=== PATIENT | male | born 1995 | race Caucasian/White ===

== ENCOUNTER 2021-07-23 09:42 | Day surgery (SDC) | payer OTHER ==
[~2021-07-23] VITALS: Ht 180.3 cm; Wt 93.0 kg
[~2021-07-23 09:42] MED LIST: LR 1,000 ML IV ONE
[2021-07-23] MEDS ORDERED: ceFAZolin SOD 2 GM in IV 1 EA IV ONE (11:25)
[2021-07-23] MEDS ORDERED: propofoL 500 MG/50 ML VIAL As Ordered ONE ×2 (13:08→14:39)
[2021-07-23] MEDS ORDERED: MIDAZOLAM INJ 2MG/2ML VIAL (J2250 PER 1MG) As Ordered ONE (13:08)
[2021-07-23] MEDS ORDERED: fentaNYL 100 MCG/2 ML INJECTION As Ordered ONE (13:09)
[2021-07-23] MEDS ORDERED: LIDOCAINE 2% 100MG/5ML SDV (FOR ANES.) As Ordered ONE (13:09)
[2021-07-23] MEDS ORDERED: propofoL 200 MG/20 ML VIAL As Ordered ONE (13:09)
[2021-07-23] MEDS ORDERED: LIDOCAINE 1% MDV 20ML VIAL As Ordered ONE (13:36)
[2021-07-23] MEDS ORDERED: BUPIVACAINE HCL 0.5% 10ML VIAL As Ordered ONE (13:37)
[2021-07-23] MEDS ORDERED: dexameTHASONE 4 MG/ML 1ML VIAL (J1100 PER 1MG) As Ordered ONE ×2 (13:37→14:01)
[2021-07-23] MEDS ORDERED: ACETAMINOPHEN 1000MG 100ML IV BTL (OFIRMEV) (J0131 PER 10MG) As Ordered ONE (14:01)
[2021-07-23] MEDS ORDERED: ONDANSETRON 4MG/2ML VIAL As Ordered ONE (14:01)
[2021-07-23] MEDS ORDERED: PHENYLephrine 500MCG 5ML (100MCG/ML) SYRINGE As Ordered ONE (14:31)
[2021-07-23 15:45] VITALS: BP 135/79
== END 2021-07-23 15:55 | disposition home or self-care (01) ==
LOC: M SDC 09:42
PROVIDERS: ATTEND Podiatrist Foot & Ankle Surgery
DX: M77.32 Calcaneal spur, left foot (principal)
CPT/HCPCS: 28118; 88300; C1713; J0131; J0690; J1100; J2250; J2370; J2405; J3010